=== PATIENT | male | born 1950 | race Caucasian/White ===

== ENCOUNTER 2018-05-09 15:08 | Inpatient (IN) | payer MEDICARE, BC ==
[~2018-05-09] VITALS: Ht 167.6 cm; Wt 73.0 kg
--- NOTE | 2018-05-09 15:10 | NUR ---
PT BIB C/O WORSENING ANXIETY X 3 WEEKS, DENIES SI/HI, PT IS AAOX3, NOT IN RESPIRATORY DISTRESS, KEPT RESTED AND COMFORTABLE.
--- NOTE | 2018-05-09 15:33 | NUR ---
LABS DRAWNED AND SENT TO LAB.
--- NOTE | 2018-05-09 15:34 | NUR ---
DR. MCGEE AT BEDSIDE FOR EVAL.
[2018-05-09] MEDS ORDERED: LAMO200T PO (15:35)
[2018-05-09] MEDS ORDERED: ARIP20TA10 PO (15:35)
[2018-05-09] MEDS ORDERED: BUPR300T54 PO (15:35)
[2018-05-09] MEDS ORDERED: CAPT50TA3 PO (15:35)
[2018-05-09] MEDS ORDERED: QUIN40TA PO (15:39)
[2018-05-09 15:43] LABS: BASOPHILS % (AUTO) 0.5 % (0.0-2.0); EOSINOPHILS % (AUTO) 1.2 % (0.0-6.0); HEMATOCRIT 43 % (39-51); HEMOGLOBIN 14.5 g/dL (13.5-17.5); LYMPHOCYTES # (AUTO) 1.1 /CMM (0.8-4.8); LYMPHOCYTES % (AUTO) 29.3 % (20.0-44.0); MEAN CORPUSCULAR HGB CONC 34 g/dl (31.0-36.0); MEAN CORPUSCULAR VOLUME 92 fL (80-96); MONOCYTES # (AUTO) 0.4 /CMM (0.1-1.30); MONOCYTES % (AUTO) 10.9 % (2.0-12.0); NEUTROPHILS # (AUTO) 2.2 /CMM (1.8-8.9); NEUTROPHILS % (AUTO) 58.1 % (43.0-81.0); PLATELET COUNT (AUTO) 210 /CMM (150-450); RED BLOOD CELL COUNT(AUTO) 4.68 MIL/uL (4.5-6.0); WHITE BLOOD COUNT (AUTO) 3.7 K/uL (4.3-11.0)
--- NOTE | 2018-05-09 15:48 | NUR ---
ARTIE AVENDANO AT BEDSIDE FOR EVAL.
--- NOTE | 2018-05-09 15:56 | NUR ---
URINE COLLECTED AND SENT TO LAB.
[2018-05-09 16:28] LABS: ALANINE AMINOTRANSFERASE 40 U/L (12-78); ALBUMIN 3.9 g/dL (3.4-5.0); ALCOHOL, BLOOD < 3 mg/dL (0-0); ALKALINE PHOSPHATASE 61 U/L (46-116); ASPARTATE AMINOTRANSFERASE 24 U/L (15-37); BILIRUBIN,DIRECT 0.1 mg/dL (0.0-0.2); BILIRUBIN,TOTAL 0.5 mg/dL (0.2-1.0); CALCIUM, SERUM 8.8 mg/dL (8.5-10.1); CARBON DIOXIDE 25 mmol/L (21-32); CHLORIDE 106 mmol/L (98-107); CREATININE 1.1 mg/dL (0.6-1.3); GLUCOSE 129 mg/dL (74-106); POTASSIUM 3.8 mmol/L (3.5-5.1); SODIUM SERUM 142 mmol/L (136-145); TOTAL PROTEIN, SERUM 7.4 g/dL (6.4-8.2); UREA NITROGEN, BLOOD 19 mg/dL (7-18)
[2018-05-09 16:30] LABS: ACETAMINOPHEN < 2 ug/ml (10-30); SALICYLATE 2.6 mg/dL (2.8-20.0)
--- NOTE | 2018-05-09 17:07 | NUR ---
Pt is assigned to GPS room#: 213-B, DX: bipolar disorder / depression, and accepting MD: Dr Selby
[2018-05-09 17:15] LABS: APPEARANCE,URINE Clear (CLEAR); BILIRUBIN,URINE Negative (NEGATIVE); BLOOD, URINE Trace-lysed Ery/uL (NEGATIVE); COLOR,URINE Yellow (YELLOW); KETONES,URINE Trace (NEGATIVE); LEUKOCYTE ESTERASE ,URINE Negative (NEGATIVE); NITRITE, URINE Negative (NEGATIVE); PH,URINE 5.5 (5.0-8.0); PROTEIN,URINE Negative (NEGATIVE); UGLUCOSE Negative (NEGATIVE); UROBILINOGEN,URINE 0.2 EU/dL (0.2)
--- NOTE | 2018-05-09 17:40 | NUR ---
REPORT GIVEN TO TASHA VALENCIA FOR JANA.
[2018-05-09 17:49] LABS: BACTERIA,URINE None seen /HPF (None Seen); CALCIUM OXALATE CRYSTALS,UR Few /HPF (None Seen); MUCUS,URINE 1 /LPF (None Seen); RBC,URINE 0-2 /HPF (0-2); SQUAMOUS EPITHELIAL CELL,UR 0-2 /HPF (None Seen); WBC,URINE 0-2 /HPF (0-3)
[2018-05-09 18:30] VITALS: BP 153/89
[2018-05-09] MEDS ORDERED: ACETAMINOPHEN 325 MG TABLET PO PRN (18:30)
[2018-05-09] MEDS ORDERED: MAG HYDROX/AL HYDROX/SIMETH 30 ML UDC PO PRN (18:30)
--- NOTE | 2018-05-09 18:45 | NUR ---
PT. ARRIVED IN THE UNIT VIA A WHEELCHAIR FROM ER AND WHEELED BY STAFF. DR. ALMAGUER MADE AWARE OF THE ADMISSION AND WITH ORDERS. V/S TAKEN, CONTRABAND AND PT. SIGNED THE ADMISSION PAPERS AND IS PRESENT WHEN PT. CAME. WILL ENDORSE TO INCOMING SHIFT FOR THE COMPLETION OF THE ADMISSION.
[2018-05-09 20:13] VITALS: BP 174/104
[2018-05-09] MEDS: LORAZEPAM 0.5 MG TABLET PO PRN (20:36)
--- NOTE | 2018-05-09 20:36 | NUR ---
GPS RN NOTES PATIENT C/O FEELING ANXIOUS. ADMINISTERED ATIVAN 0.5MG PO ORDERED. WILL CONTINUE TO MONITOR CLOSELY PATIENT'S SAFETY AND BEHAVIOR.
[2018-05-09 21:30] VITALS: BP 128/79
[2018-05-09] MEDS: TEMAZEPAM 7.5 MG CAPSULE PO PRN (21:42)
[2018-05-09] MEDS ORDERED: hydrALAZINE HCL 25 MG TABLET PO PRN (23:30)
[2018-05-10] MEDS: HYDROCODONE/APAP 5/325MG 1 EACH TABLET PO PRN ×2 (02:33→22:13)
--- NOTE | 2018-05-10 02:33 | NUR ---
GPS RN PRN NOTES PATIENT C/O BOTH KNEES PAIN ON A PAIN SCALE OF 7/10 AND REQUESTED FOR NORCO. ADMINISTERED NORCO 5/325MG PO ORDERED. WILL MONITOR MEDICATION FOR EFFECTIVENESS AND PATIENT SAFETY.
[2018-05-10 07:52] LABS: BASOPHILS % (AUTO) 0.5 % (0.0-2.0); EOSINOPHILS % (AUTO) 3.9 % (0.0-6.0); HEMATOCRIT 43 % (39-51); HEMOGLOBIN 14.3 g/dL (13.5-17.5); LYMPHOCYTES # (AUTO) 1.4 /CMM (0.8-4.8); LYMPHOCYTES % (AUTO) 36.3 % (20.0-44.0); MEAN CORPUSCULAR HGB CONC 34 g/dl (31.0-36.0); MEAN CORPUSCULAR VOLUME 92 fL (80-96); MONOCYTES # (AUTO) 0.6 /CMM (0.1-1.30); MONOCYTES % (AUTO) 16.2 % (2.0-12.0); NEUTROPHILS # (AUTO) 1.6 /CMM (1.8-8.9); NEUTROPHILS % (AUTO) 43.1 % (43.0-81.0); PLATELET COUNT (AUTO) 175 /CMM (150-450); RED BLOOD CELL COUNT(AUTO) 4.67 MIL/uL (4.5-6.0); WHITE BLOOD COUNT (AUTO) 3.8 K/uL (4.3-11.0)
[2018-05-10 08:00] VITALS: BP 128/82
[2018-05-10 08:05] LABS: ALBUMIN 3.7 g/dL (3.4-5.0); BILIRUBIN,TOTAL 0.8 mg/dL (0.2-1.0); CALCIUM, SERUM 8.7 mg/dL (8.5-10.1); CREATININE 1.2 mg/dL (0.6-1.3); MAGNESIUM 2.3 mg/dL (1.8-2.4); PHOSPHORUS 3.1 mg/dL (2.5-4.9); POTASSIUM 3.9 mmol/L (3.5-5.1); TOTAL PROTEIN, SERUM 7.1 g/dL (6.4-8.2)
[2018-05-10 08:08] LABS: THYROID STIMULATING HORMONE 2.214 uIU/mL (0.358-3.74)
[2018-05-10] MEDS ORDERED: QUINAPRIL HCL 40 MG PO SCH (09:00)
[2018-05-10] MEDS: LISINOPRIL (20MG) 20 MG TABLET PO SCH (09:09)
[2018-05-10] MEDS: LORAZEPAM 0.5 MG TABLET PO PRN (09:09)
--- NOTE | 2018-05-10 09:09 | NUR ---
RN NOTES ADMINISTERED ATIVAN 0.5 MG PO PRN FOR ANXIETY PER PATIENT REQUEST, V/S TAKEN BP 128/82, P-52, CONTINUED MONITORING,
--- NOTE | 2018-05-10 13:53 | NUR ---
RIMMA called the pt's , Nilda ([phone]), and left a message on her voicemail stating that the SW would like to speak to her about the pt's discharge plan.
--- NOTE | 2018-05-10 14:57 | NUR ---
Initial Discharge Plan: Pt currently resides at his home with his located at [address] [place] [address]; ([phone]). Per pt, he would like to return to his home. RIMMA will work with the pt and the MD regarding appropriate discharge planning. SW will form a safe and proper discharge for the pt.
[2018-05-10 16:00] VITALS: BP 148/95
--- NOTE | 2018-05-10 18:00 | NUR ---
RN NOTES PATIENT STABLE AFTER IM SHOT GIVEN. QUIET, REDIRECTABLE. SCHEDULED MEDICATION ADMINISTERED, V/S STABLE, CALL [facility] NEAR TO [facility], SAFETY PRECAUTION MAINTAINED Q 15 MINS. ENDORSED ONCOMING NURSE FOR PLAN OF CARE.
--- NOTE | 2018-05-10 19:30 | NUR ---
GPS RN NOTE, RECEIVED PATIENT AWAKE AND IN BED, NO S/S OR COMPLAINTS OF PAIN AT THIS TIME. PATIENT IS DISPLAYING NO S/S OF APPARENT DISTRESS AT THIS TIME. PATIENT BREATHING IS UNLABORED WITH EQUAL RISE AND FALL OF THE CHEST. PATIENT IS ALERT AND ORIENTED X 3 ON ROOM AIR WITH A SPO2 OF 96%. PATIENT IS COMPLIANT WITH MEDICATION, COOPERATIVE, ANXIOUS, DISORGANIZED, PARANOID, AND NEEDS REDIRECTION. PATIENT IS CONFUSED BUT DENIES SUICIDE IDEATIONS AND HOMICIDAL IDEATIONS AT THIS TIME. PATIENT ASSISTED WITH TURNING AND REPOSITIONING Q 2HRS AND PRN FOR COMFORT AND CIRCULATION. PATIENT HAS NO NEEDS AT THIS TIME. PATIENT EDUCATED ON THE USE OF THE CALL [facility]. PATIENT BED SIDE RAILS UP X 2 FOR SAFETY, BED IS LOCKED, LOW, AND I WILL CONTINUE TO MONITOR AND MAINTAIN SAFETY Q15 MIN WITH THE HELP OF STAFF.
[2018-05-10] MEDS: ARIPIPRAZOLE 5 MG TABLET PO SCH (21:23)
[2018-05-10] MEDS: LamoTRIgine 100 MG TABLET PO SCH (21:23)
--- NOTE | 2018-05-10 22:13 | NUR ---
GPS RN NOTE, PATIENT HAS A COMPLAINT OF CHRONIC GENERALIZED PAIN AT 7 OUT 10 ON THE PAIN SCALE AND IS REQUESTING NORCO AT THIS TIME. PATIENT VITAL SIGNS ARE STABLE. GAVE NORCO 5-325 1 TAB PO Q8HR PRN ORDERED. WILL REASSESS FOR PAIN AND I WILL CONTINUE TO MONITOR THIS PATIENT.
[2018-05-11 08:00] VITALS: BP 148/95
[2018-05-11] MEDS: LISINOPRIL (20MG) 20 MG TABLET PO SCH (09:36)
[2018-05-11] MEDS: BUPROPION XL 150 MG TAB.ER.24 PO SCH (09:36)
--- NOTE | 2018-05-11 15:05 | NUR ---
Nilda ([phone]), pt's , called the SW back and stated that she wants the pt to be discharged home once the psychiatrist is ready to discharge him.
[2018-05-11 16:00] VITALS: BP 154/95
[2018-05-11 20:00] VITALS: BP 161/96
--- NOTE | 2018-05-11 20:00 | NUR ---
BP 161/96, HR 80. ASYMPTOMATIC, DENIES CHEST PAIN. WILL RECHECK VITALS.
[2018-05-11] MEDS: LamoTRIgine 100 MG TABLET PO SCH (21:45)
[2018-05-11] MEDS: ARIPIPRAZOLE 5 MG TABLET PO SCH (21:45)
[2018-05-11] MEDS: TEMAZEPAM 7.5 MG CAPSULE PO PRN (21:46)
[2018-05-12] MEDS: HYDROCODONE/APAP 5/325MG 1 EACH TABLET PO PRN ×2 (00:38→21:50)
--- NOTE | 2018-05-12 00:39 | NUR ---
C/O ARTHRITIC PAIN BOTH ARMS AND SHOULDER, 7/10 ON PAIN SCALE, NORCO 5/325 MG TAB PO GIVEN.
--- NOTE | 2018-05-12 01:00 | NUR ---
LATEST BP NOW 134/95, HR 77. WILL RECHECK IN AM.
--- NOTE | 2018-05-12 06:00 | NUR ---
LATEST BP 154/87, HR 73. NO APPARENT DISTRESS NOTED. DENIES ANY CHEST DISCOMFORT, ASYMPTOMATIC. WILL CONTINUE TO MONITOR.
[2018-05-12 08:00] VITALS: BP 152/98
[2018-05-12] MEDS: BUPROPION XL 150 MG TAB.ER.24 PO SCH (08:57)
[2018-05-12] MEDS: LISINOPRIL (20MG) 20 MG TABLET PO SCH (08:58)
--- NOTE | 2018-05-12 10:43 | NUR ---
Nilda ([phone]), pt's , called the SW and stated that she believes the pt has been changing due to a medical condition and not because of his depression. Pt's requested that the medical team order the pt get an MRI to evaluate the state of his head. SW stated that she would inform the appropriate personnel but cannot guarantee anything.
[2018-05-12] MEDS: AMLODIPINE BESYLATE 2.5 MG TABLET PO SCH (13:45)
[2018-05-12 16:00] VITALS: BP 137/91
[2018-05-12 20:00] VITALS: BP 150/101
[2018-05-12] MEDS: ARIPIPRAZOLE 5 MG TABLET PO SCH (21:06)
[2018-05-12] MEDS: LamoTRIgine 100 MG TABLET PO SCH (21:06)
[2018-05-12 22:30] VITALS: BP 135/85
[2018-05-13] MEDS: TEMAZEPAM 7.5 MG CAPSULE PO PRN (00:08)
[2018-05-13 08:00] VITALS: BP 118/75
[2018-05-13] MEDS: AMLODIPINE BESYLATE 2.5 MG TABLET PO SCH (08:44)
[2018-05-13] MEDS: LISINOPRIL (20MG) 20 MG TABLET PO SCH (08:45)
[2018-05-13] MEDS: BUPROPION XL 150 MG TAB.ER.24 PO SCH (08:45)
[2018-05-13 16:00] VITALS: BP 126/77
[2018-05-13 20:01] VITALS: BP 153/92
[2018-05-13] MEDS: LamoTRIgine 100 MG TABLET PO SCH (21:43)
[2018-05-13] MEDS: ARIPIPRAZOLE 5 MG TABLET PO SCH (21:43)
[2018-05-14 08:00] VITALS: BP 150/100
[2018-05-14] MEDS: BUPROPION XL 150 MG TAB.ER.24 PO SCH (08:11)
[2018-05-14] MEDS: LISINOPRIL (20MG) 20 MG TABLET PO SCH (08:11)
[2018-05-14] MEDS: AMLODIPINE BESYLATE 2.5 MG TABLET PO SCH (08:11)
[2018-05-14 16:00] VITALS: BP 125/85
--- NOTE | 2018-05-14 19:40 | NUR ---
RN NOTES: RECEIVED PATIENT AWAKE AND IN BED, PATIENT IS DISPLAYING NO S/S OF APPARENT DISTRESS AT THIS TIME. PATIENT BREATHING IS UNLABORED WITH EQUAL RISE AND FALL OF THE CHEST. PATIENT IS ALERT AND ORIENTED X 3 ON ROOM AIR WITH A SPO2 OF 97%. PATIENT IS COOPERATIVE, ANXIOUS AND NEEDS REDIRECTION. PATIENT HAS NO NEEDS AT THIS TIME. PATIENT EDUCATED ON THE USE OF THE CALL [facility]. PATIENT BED SIDE RAILS UP X 2 FOR SAFETY, BED IS LOCKED AND LOW POSITION, I WILL CONTINUE TO MONITOR AND MAINTAIN SAFETY Q15 MIN WITH THE HELP OF STAFF.
[2018-05-14 20:00] VITALS: BP 108/73
[2018-05-14] MEDS: LamoTRIgine 100 MG TABLET PO SCH (22:50)
[2018-05-14] MEDS: ARIPIPRAZOLE 5 MG TABLET PO SCH (22:50)
[2018-05-14] MEDS: HYDROCODONE/APAP 5/325MG 1 EACH TABLET PO PRN (22:57)
[2018-05-15 08:00] VITALS: BP 100/72
[2018-05-15] MEDS: BUPROPION XL 150 MG TAB.ER.24 PO SCH (08:32)
[2018-05-15] MEDS: AMLODIPINE BESYLATE 2.5 MG TABLET PO SCH (08:32)
[2018-05-15] MEDS: LISINOPRIL (20MG) 20 MG TABLET PO SCH (08:33)
--- NOTE | 2018-05-15 08:34 | NUR ---
rn notes bp medication no administered because bp -100/72, p-91, continued monitoring.
[2018-05-15] MEDS: MAGNESIUM HYDROXIDE 30 ML UDC PO PRN (08:41)
--- NOTE | 2018-05-15 08:41 | NUR ---
rn notes administered milk of magnesia 30 ml po prn for constipation , continued monitoring.
[2018-05-15 16:00] VITALS: BP 154/79
[2018-05-15 20:00] VITALS: BP 151/79
[2018-05-15] MEDS: ARIPIPRAZOLE 5 MG TABLET PO SCH (21:30)
[2018-05-15] MEDS: LamoTRIgine 100 MG TABLET PO SCH (21:30)
[2018-05-15] MEDS: HYDROCODONE/APAP 5/325MG 1 EACH TABLET PO PRN (23:48)
--- NOTE | 2018-05-15 23:48 | NUR ---
GPS RN NOTE, PATIENT HAS A COMPLAINT OF GENERALIZED PAIN AT 5 OUT 10 ON THE PAIN SCALE AND IS REQUESTING NORCO AT THIS TIME. PATIENT VITAL SIGNS ARE STABLE. GAVE NORCO 5-325 1 TAB PO Q8HR PRN ORDERED. WILL REASSESS PAIN AND I WILL CONTINUE TO MONITOR THIS PATIENT.
[2018-05-16 08:17] VITALS: BP 163/101
[2018-05-16] MEDS: AMLODIPINE BESYLATE 2.5 MG TABLET PO SCH (08:55)
[2018-05-16] MEDS: BUPROPION XL 150 MG TAB.ER.24 PO SCH (08:55)
[2018-05-16] MEDS: LISINOPRIL (20MG) 20 MG TABLET PO SCH (08:55)
[2018-05-16 16:25] VITALS: BP 144/95
--- NOTE | 2018-05-16 16:31 | NUR ---
RN NOTE: PATIENT REPORTS INDIGESTION/ "STOMACH FEELS WEIRD". MAALOX PRN GIVEN.
[2018-05-16 21:02] VITALS: BP 127/84
[2018-05-16] MEDS: LamoTRIgine 100 MG TABLET PO SCH (21:22)
[2018-05-16] MEDS: ARIPIPRAZOLE 5 MG TABLET PO SCH (21:23)
[2018-05-16] MEDS: HYDROCODONE/APAP 5/325MG 1 EACH TABLET PO PRN (23:50)
[2018-05-17 08:00] VITALS: BP 113/61
[2018-05-17] MEDS: AMLODIPINE BESYLATE 2.5 MG TABLET PO SCH (08:47)
[2018-05-17] MEDS: LISINOPRIL (20MG) 20 MG TABLET PO SCH (08:48)
[2018-05-17] MEDS: BUPROPION XL 150 MG TAB.ER.24 PO SCH (08:48)
[2018-05-17 16:00] VITALS: BP 114/75
[2018-05-17 20:00] VITALS: BP 130/86
[2018-05-17] MEDS: HYDROCODONE/APAP 5/325MG 1 EACH TABLET PO PRN (20:51)
[2018-05-17] MEDS: LamoTRIgine 100 MG TABLET PO SCH (21:43)
[2018-05-17] MEDS: ARIPIPRAZOLE 5 MG TABLET PO SCH (21:44)
[2018-05-18 08:00] VITALS: BP 121/79
[2018-05-18] MEDS: BUPROPION XL 150 MG TAB.ER.24 PO SCH (08:36)
[2018-05-18] MEDS: AMLODIPINE BESYLATE 2.5 MG TABLET PO SCH (08:36)
[2018-05-18] MEDS: LISINOPRIL (20MG) 20 MG TABLET PO SCH (08:36)
--- NOTE | 2018-05-18 12:45 | NUR ---
RIMMA placed phone call to patient's , Nilda ([phone]) to inform her of pending discharge tomorrow (05/19/18) and to discuss discharge logistics. Per , she will be able to grape picker the patient tomorrow after she gets off of work (sometime between 5pm-6pm). Per , the patient will need a Primary Care Physician referral, and SW will include a list of Medicare-accepting family practitioners in their area. Per , the patient sees Dr. Cathie Tom [[address] [place] [address]; ], but were hoping for a psychiatrist that is closer to where they live. RIMMA will also include a list of Medicare-accepting psychiatrists in their area. Pt's asked that the patient's prescriptions be called into their preferred pharmacy: [facility] [Address: [address] [place] [address]; ; ]. RIMMA alerted Saturnino in GPS about this request and provided him with the pharmacy information.
[2018-05-18 16:00] VITALS: BP 106/71
[2018-05-18] MEDS: MAGNESIUM HYDROXIDE 30 ML UDC PO PRN (18:46)
[2018-05-18 20:00] VITALS: BP 124/79
[2018-05-18] MEDS: LamoTRIgine 100 MG TABLET PO SCH (21:05)
[2018-05-18] MEDS: ARIPIPRAZOLE 5 MG TABLET PO SCH (21:05)
[2018-05-18] MEDS: TEMAZEPAM 7.5 MG CAPSULE PO PRN (22:45)
[2018-05-19 08:00] VITALS: BP 131/78
[2018-05-19] MEDS: BUPROPION XL 150 MG TAB.ER.24 PO SCH (08:57)
[2018-05-19] MEDS: LISINOPRIL (20MG) 20 MG TABLET PO SCH (08:57)
[2018-05-19] MEDS: AMLODIPINE BESYLATE 2.5 MG TABLET PO SCH (08:58)
--- NOTE | 2018-05-19 15:20 | NUR ---
RIMMA called the pt's , Nilda ([phone]), and informed her that the pt's Medicare psychiatrist and cyber defense forensics analyst referrals will be placed in the chart and reassured her that the pt's prescriptions will be faxed over to the appropriate pharmacy.
[2018-05-19 16:00] VITALS: BP 144/92
--- NOTE | 2018-05-19 16:26 | NUR ---
Discharge Note: Pt was discharged home to [address] [place] [address]. Pts , Nilda ([phone]), picked him up at 6pm. Upon discharge, the pt appeared to be in a euthymic mood and presented with a flat affect. The pt denied both suicidal and homicidal ideation as well as auditory and visual hallucinations. Pt will be under the care of his psychiatrist, Dr. Cathie Tom, located at [address] [facility], [address], [place] [address]; ([phone]) and his etcher aircraft, Dr. Eugene, located at [address] [place] [address]; ([phone]).
[2018-05-19] MEDS: LORAZEPAM 0.5 MG TABLET PO PRN (17:11)
--- NOTE | 2018-05-19 17:11 | NUR ---
NURSING NOTE: PT STATING HE IS VERY ANXIOUS, SHAKING, STATING "I'M NOT FEELING WELL, I DON'T THINK I SHOULD GO HOME". REQUESTING ATIVAN, ADMINISTERED ATIVAN 0.5MG PO PER MD ORDER. VS STABLE. WILL CONTINUE TO MONITOR FOR SAFETY.
--- NOTE | 2018-05-19 17:55 | NUR ---
NURSING DISCHARGE NOTE: PT WAS DISCHARGED TODAY AT [address] [place] [address], , WITH HIS CYRUS VIA PRIVATE VEHICLE. PT IS CALM, COOPERATIVE, A&OX3, FLAT AFFECT, PLEASANT, DENIES SI/HI AT THE TIME OF DISCHARGE, VS STABLE, SKIN INTACT, NO C/O PAIN, NO S/S OF DISTRESS NOTED. PT LEFT THE UNIT AMBULATORY ESCORTED BY 1 BIOINFORMATICS ENGINEER AND HIS CYRUS TO PRIVATE VEHICLE. DISCHARGE ORDERS WERE OBTAINED FROM DR. ALMAGUER, HOLD HAS BEEN DC AND PT IS MEDICALLY STABLE FOR DISCHARGE PER DR. PRESCOTT. PRESCRIPTIONS WERE FAXED TO [facility] AT [phone] AND PHYSICAL PRESCRIPTIONS WERE GIVEN TO PT WELL. ALL MEDICATIONS WERE EXPLAINED TO PT AND PT'S AND THEY BOTH VERBALIZED UNDERSTANDING OF INSTRUCTIONS. PT WAS COOPERATIVE WITH DISCHARGE PROCESS AND VERBALIZED UNDERSTANDING OF DISCHARGE INSTRUCTIONS. DISCHARGE INSTRUCTIONS WERE GIVEN TO PT'S CYRUS WELL AND SHE VERBALIZED UNDERSTANDING OF INSTRUCTIONS. PT HAS SIGNED ALL DISCHARGE PAPERWORK. ALL BELONGINGS WERE RETURNED TO PT WELL.
[2018-05-19] MEDS ORDERED: ATORVASTATIN 10 MG TABLET PO SCH (22:00)
== END 2018-05-19 17:55 | disposition home or self-care (01) | DRG 885 ==
LOC: ER 15:09 → GPS 17:13
PROVIDERS: ADMIT Psychiatry & Neurology Psychiatry; ATTEND Psychiatry & Neurology Psychiatry
DX: F31.9 Bipolar disorder, unspecified (principal); G21.19 Other drug induced secondary parkinsonism; F41.9 Anxiety disorder, unspecified; I10 Essential (primary) hypertension; J44.9 Chronic obstructive pulmonary disease, unspecified; T50.995A Adverse effect of other drugs, medicaments and biological substances, initial encounter; Y92.89 Other specified places as the place of occurrence of the external cause; M19.90 Unspecified osteoarthritis, unspecified site; Z87.891 Personal history of nicotine dependence; D72.819 Decreased white blood cell count, unspecified; R73.9 Hyperglycemia, unspecified; E78.5 Hyperlipidemia, unspecified; F10.10 Alcohol abuse, uncomplicated; K59.00 Constipation, unspecified; Z91.19 Patient's noncompliance with other medical treatment and regimen
CPT/HCPCS: 36415; 80048-TC; 80053-TC; 80061-TC; 80076-TC; 80305; 81000-TC; 83735-TC; 84100-TC; 84443-TC; 85025-TC; 87081-TC; G0480